=== PATIENT | male | born 1970 | race Caucasian/White ===

== ENCOUNTER 2017-05-09 08:23 | Day surgery (SDC) | payer OTHER ==
[~2017-05-09] VITALS: Ht 170.2 cm; Wt 83.9 kg
[2017-05-09] MEDS ORDERED: GLIP5TAB4 PO (10:41)
[2017-05-09] MEDS ORDERED: METF1000 PO (10:41)
[2017-05-09] MEDS ORDERED: LISI2.5T12 PO (10:41)
[2017-05-09] MEDS ORDERED: GELATIN SPONGE 100 1 SPG TP ONE (10:54)
[2017-05-09] MEDS ORDERED: SEVOFLURANE 250 ML BTL INH ONE (11:05)
[2017-05-09] MEDS ORDERED: PROPOFOL 200 MG/20 ML VIAL IV ONE (11:05)
[2017-05-09] MEDS ORDERED: KETOROLAC 30 MG/ML VIAL IVP ONE (11:05)
[2017-05-09] MEDS ORDERED: ONDANSETRON 4 MG/2 ML VIAL IVP ONE (11:05)
[2017-05-09] MEDS ORDERED: BUPIVACAINE-MPF 0.25% 30 ML VIAL INJ ONE (11:09)
[2017-05-09] MEDS ORDERED: fentaNYL 0.05 MG/ML VIAL ONE ×2 (11:13→12:12)
[2017-05-09] MEDS ORDERED: LIDOCAINE 2% 100 MG/5 ML UJET TP ONE (12:28)
[2017-05-09] MEDS ORDERED: MORPHINE SULFATE 4 MG/ML SYR IV PRN (12:30)
[2017-05-09] MEDS ORDERED: NACL 0.9% 1,000 ML IV SCH (12:30)
[2017-05-09] MEDS ORDERED: HYDROmorphone 1 MG/ML AMP IVP PRN (12:30)
[2017-05-09] MEDS ORDERED: HYDROcodone/APAP 5/325 MG 1 TAB TAB PO PRN (12:30)
[2017-05-09] MEDS ORDERED: ONDANSETRON 4 MG/2 ML VIAL IV PRN (12:30)
[2017-05-09] MEDS ORDERED: ACETAMINOPHEN 325 MG TAB PO PRN (12:30)
== END 2017-05-09 14:10 | disposition home or self-care (01) ==
LOC: MMU 08:23 → MDS 08:23
PROVIDERS: ATTEND Surgery
DX: K60.3 Anal fistula (principal); Z90.49 Acquired absence of other specified parts of digestive tract
CPT/HCPCS: 45378; 46270; 71010; 82948; 93005; J0690; J1885; J2405; J2704; J3010; J3490; J7030; J7060